=== PATIENT | male | born 1990 | race Caucasian/White ===

== ENCOUNTER 2016-09-17 22:20 | Emergency (ER) | payer MEDICAID ==
[~2016-09-17] VITALS: Ht 177.8 cm; Wt 79.5 kg
[2016-09-17 22:22] VITALS: Ht 177.8 cm; Wt 79.5 kg
--- NOTE | 2016-09-17 23:29 | RADRPT ---
PROCEDURE: XR Chest. CLINICAL INDICATION: Cough. TECHNIQUE: AP view of the chest was obtained. COMPARISON: None available FINDINGS: The cardiomediastinal silhouette is within normal limits. The lungs are clear. No signs of pleural f luid or pneumothorax are seen. The osseous structures and soft tissues are unremarkable. IMPRESSION: 1. No evidence for active cardiopulmonary disease. RPTAT: HGAS .Jv Tavera MD, MD Date Time Electronically viewed and signed by .Jv Tavera MD, on 09/17/2016 23:28 .S/
[2016-09-17] MEDS ORDERED: BENZ100C70 PO (23:36)
[2016-09-17] MEDS ORDERED: UDROBDM PO (23:37)
[2016-09-17] MEDS ORDERED: AMO500 PO (23:37)
--- NOTE | 2016-09-17 23:48 | ERD ---
ER Documentation Chief Complaint Date/Time DATE: 09/17/16 TIME: 23:37 Chief Complaint cough x 2 weeks, chest congestion, runny nose HPI Patient is a 25-year-old male who presents to the emergency department with a cough and nasal congestion 2 weeks. Patient states his cough initially was dry however it is now become productive. Patient reports yellow phlegm production. Patient states that his nasal secretions are yellow in color. Patient also reports increased sinus pressure. Patient reports pain when bending down. Patient admits to tactile fevers. Patient denies any chills. Patient denies any nausea, vomiting, abdominal pain, diarrhea. Patient states he took NyQuil 1 hour ago. Patient was reports taking amoxicillin 1 tab which he got from a friend. Patient denies CP, SOB or LOC. No sick contacts. No recent travel. ROS All systems reviewed and are negative except as per history of present illness. Medications Home Meds Active Scripts Amoxicillin* (Amoxicillin*) 500 Mg Cap, 500 MG PO TID for 7 Days, CAP Prov:JORGITO DANIELLE PA-C 09/17/16 Guaifenesin-Dextromethorphan* (Robitussin* DM) 100MG/10MG/5ML Syrup, 5 ML PO Q4H Y for COUGH, #1 BOT Prov:JORGITO DANIELLE PA-C 09/17/16 Benzonatate* (Tessalon Perle*) 100 Mg Capsule, 100 MG PO Q8H Y for COUGH, #15 CAP Prov:JORGITO DNAIELLE PA-C 09/17/16 Allergies Allergies: Coded Allergies: No Known Allergy (Unverified , 09/17/16) PMhx/Soc History of Surgery: No Anesthesia Reaction: No Hx Neurological Disorder: No Hx Respiratory Disorders: No Hx Cardiac Disorders: No Hx Psychiatric Problems: No Hx Miscellaneous Medical Probl: No Hx Alcohol Use: No Hx Substance Use: No Hx Tobacco Use: No FmHx Family History: No diabetes Physical Exam Vitals Vital Signs Date Time Temp Pulse Resp B/P Pulse Ox O2 Delivery O2 Flow Rate FiO2 09/17/16 22:22 98.6 99 20 157/89 99 Physical Exam GENERAL: Well-developed, well-nourished female. Appears in no acute distress. HEAD: Normocephalic, atraumatic. No deformities or ecchymosis. EYE: Pupils equal, round, and reactive to light. EOMs intact. No conjunctival erythema. No eye discharge. ENT: External ear without any masses or tenderness. Auditory canals clear bilaterally. TM visualized bilaterally, non-erythematous, non-bulging. Nasal mucosa pink with no discharge. Oropharynx is pink without any tonsillar erythema or exudates. No uvula deviation. No kissing tonsils. Tenderness to palpation of the frontal and maxillary sinuses. Patient reports increasing sinus pressure upon bending his head down. NECK: Supple. No meningismus. Normal ROM of the neck. LUNG: Clear to auscultation bilaterally. No rhonchi, wheezing, rales or coarse breath sounds. HEART: Regular rate and rhythm. No murmurs, rubs or gallops. BACK: No midline tenderness. EXTREMITES: Equal pulses bilaterally. No peripheral clubbing, cyanosis or edema. No unilateral leg swelling. NEUROLOGIC: Alert and oriented to person, place and time. Moving all four extremities. 5/5 strength in all extremities. Normal speech. Steady gait. (-) Brudzinski sign- no flexion of the hips and knees noted with neck flexion. (-) Kernigs sign- patient able to extend knee to 180 degrees with hip flexion , no hamstring stiffness noted. SKIN: Normal color. Warm and dry. No rashes or lesions. Procedures/MDM ED COURSE: The patient was stable throughout ED course. I kept the patient and/or family informed of laboratory and diagnostic imaging results throughout the ED course. DIAGNOSTIC IMAGING: Read by radiologist. DIAGNOSTIC IMAGING REPORT Patient: JENNIFER GERARDO : 1990 Age: 25 Sex: M MR #: [id number] DOS: 09/17/16 2246 Ordering MD: JORGITO DANIELLE PA-C Location: [facility] Room/Bed: PROCEDURE: XR Chest. CLINICAL INDICATION: Cough. TECHNIQUE: AP view of the chest was obtained. COMPARISON: None available FINDINGS: The cardiomediastinal silhouette is within normal limits. The lungs are clear. No signs of pleural fluid or pneumothorax are seen. The osseous structures and soft tissues are unremarkable. IMPRESSION: 1. No evidence for active cardiopulmonary disease. RPTAT: HGAS .Jv Tavera MD, MD Date Time Electronically viewed and signed by .Jv Tavera MD, MD on 09/17/2016 23: 28 .S/ CC: JORGITO DANIELLE PA-C PROCEDURES: None. MEDICAL DECISION MAKING: This is a 25 year old male with a cough, sinus congestion and pressure x 2 weeks. Vital signs were reviewed. Patient was afebrile. Patient was not hypoxic. ENT exam revealed tenderness to palpation of sinuses. Lung exam was normal. CXR was unremarkable. Given these findings, the patient's presentation is most consistent with sinusitis and viral URI. I have a much lower clinical concern for pneumothorax, pleural effusion, pneumonia, meningitis, otitis externa, acute otitis media, strep pharyngitis, epiglottitis or peritonsillar abscess. PRESCRIPTIONS: Amoxicillin, Tessalon Perles, Robitussin DISCHARGE: At this time, patient is stable for discharge and outpatient management. Supportive therapies such as OTC throat lozenges, salt water gurgles, popsicles and jello discussed. I have instructed the patient to follow-up with his/her primary care physician in 1-2 days. I have instructed the patient to promptly return to the ER for any new or worsening symptoms including increased pain, swelling, fever, nausea, vomiting, weakness or difficulty breathing. The patient and/or family expressed understanding of and agreement with this plan. All questions were answered. Home care instructions were provided. Departure Diagnosis: Primary Impression: Sinusitis Sinusitis location: unspecified location Chronicity: acute Recurrence: not specified as recurrent Qualified Code: J01.90 - Acute sinusitis, recurrence not specified, unspecified location Additional Impression: URI (upper respiratory infection) URI type: unspecified URI Qualified Code: J06.9 - Upper respiratory tract infection, unspecified type Condition: Stable Patient Instructions: Sinusitis, Abx Tx Referrals: COMM[facility] YOU HAVE RECEIVED A MEDICAL SCREENING EXAM AND THE RESULTS INDICATE THAT YOU DO NOT HAVE A CONDITION THAT REQUIRES URGENT TREATMENT IN THE EMERGENCY DEPARTMENT. FURTHER EVALUATION AND TREATMENT OF YOUR CONDITION CAN WAIT UNTIL YOU ARE SEEN IN YOUR DOCTORS OFFICE WITHIN THE NEXT 1-2 DAYS. IT IS YOUR RESPONSIBILITY TO MAKE AN APPOINTMENT [facility]. IF YOU HAVE A PRIMARY DOCTOR --you should call your primary doctor and schedule an appointment IF YOU DO NOT HAVE A PRIMARY DOCTOR YOU CAN CALL OUR PHYSICIAN REFERRAL HOTLINE AT IF YOU CAN NOT AFFORD TO SEE A PHYSICIAN YOU CAN CHOSE FROM THE FOLLOWING [facility] [address] [facility] [address] [facility] [address] [facility] [address] [facility] [address] [facility]. [facility] [address] [facility]. [facility] [place] YOU HAVE RECEIVED A MEDICAL SCREENING EXAM AND THE RESULTS INDICATE THAT YOU DO NOT HAVE A CONDITION THAT REQUIRES URGENT TREATMENT IN THE EMERGENCY DEPARTMENT. FURTHER EVALUATION AND TREATMENT OF YOUR CONDITION CAN WAIT UNTIL YOU ARE SEEN IN YOUR DOCTORS OFFICE WITHIN THE NEXT 1-2 DAYS. IT IS YOUR RESPONSIBILITY TO MAKE AN APPOINTMENT FOR [facility] CARE. IF YOU HAVE A PRIMARY DOCTOR --you should call your primary doctor and schedule and appointment IF YOU DO NOT HAVE A PRIMARY DOCTOR YOU CAN CALL OUR PHYSICIAN REFERRAL HOTLINE AT . IF YOU CAN NOT AFFORD TO SEE A PHYSICIAN YOU CAN CHOSE FROM THE FOLLOWING [facility]: [facility] [address] [place] [address] [facility] [address] [place] [address] [facility] [address] [place] [address] Additional Instructions: Call your primary care doctor TOMORROW for an appointment during the next 1-2 days.See the doctor sooner or return here if your condition worsens before your appointment time. JORGITO DANIELLE PA-C September 17, 2016 23:48
== END 2016-09-18 00:01 | disposition home or self-care (01) ==
LOC: FTE 22:20
DX: J01.90 Acute sinusitis, unspecified (principal); J06.9 Acute upper respiratory infection, unspecified
CPT/HCPCS: 71010; Z7502